=== PATIENT | male | born 1980 | race Two or more races ===

== ENCOUNTER 2018-04-12 16:32 | Emergency (ER) | payer OTHER ==
[~2018-04-12] VITALS: Ht 180.3 cm; Wt 79.4 kg
[~2018-04-12 16:32] MED LIST: ALPR1 PO; IBUP800 PO; LORA.5 PO; Norco 5-325 Ta1 EACH PO
[2018-04-12] MEDS ORDERED: Pantoprazole So40 MG PO (16:40)
[2018-04-12] MEDS ORDERED: Carafate1 GM/10 ML PO ×2 (16:40→17:05)
[2018-04-12] MEDS ORDERED: ZIPR20 PO (16:41)
[2018-04-12] MEDS ORDERED: Norco 5-325 Ta1 EACH PO (17:03)
[2018-04-12] MEDS ORDERED: Protonix40 MG PO (17:05)
== END 2018-04-12 17:10 | disposition home or self-care (01) ==
LOC: ER 16:32
DX: M79.641 Pain in right hand (principal); F41.9 Anxiety disorder, unspecified; F17.200 Nicotine dependence, unspecified, uncomplicated; Z88.6 Allergy status to analgesic agent; Z91.030 Bee allergy status; Z88.5 Allergy status to narcotic agent; Z79.899 Other long term (current) drug therapy
CPT/HCPCS: 99283

== ENCOUNTER 2018-05-04 13:55 | Emergency (ER) | payer OTHER ==
[~2018-05-04] VITALS: Ht 182.9 cm; Wt 87.3 kg
[~2018-05-04 13:55] MED LIST changes: +Carafate1 GM/10 ML PO; +Pantoprazole So40 MG PO; +Protonix40 MG PO; +ZIPR20 PO
[2018-05-04] MEDS ORDERED: CYCL10 PO (14:21)
[2018-05-04] MEDS ORDERED: Norco 7.5-3251 EACH PO (14:21)
== END 2018-05-04 14:38 | disposition home or self-care (01) ==
LOC: ER 13:55
DX: M25.511 Pain in right shoulder (principal); F41.9 Anxiety disorder, unspecified; F17.200 Nicotine dependence, unspecified, uncomplicated; Z91.048 Other nonmedicinal substance allergy status; Z88.6 Allergy status to analgesic agent; Z79.899 Other long term (current) drug therapy
CPT/HCPCS: 99282; J7030